=== PATIENT | female | born 1995 | race Caucasian/White ===

== ENCOUNTER 2021-05-17 12:10 | Emergency (ER) | payer OTHER, SELFPAY ==
[2021-05-17 12:22] VITALS: BP 117/57; PULSE 90; RESP 14; TEMP 37; O2SAT 99; BMI 33.6
[2021-05-17 12:52] LABS: COVID19 -Nasal RAPID Negative (Negative)
== END 2021-05-17 15:19 | disposition left against medical advice (07) ==
PROVIDERS: Emergency Provider Emergency Medicine
DX: Z53.21 Procedure and treatment not carried out due to patient leaving prior to being seen by health care provider (principal); Z20.822 Contact with and (suspected) exposure to COVID-19
CPT/HCPCS: 87635; 99281; C9803

== ENCOUNTER 2023-09-13 18:26 | Emergency (ER) | payer OTHER, SELFPAY ==
[2023-09-13 18:33] VITALS: BP 122/59; PULSE 80; RESP 16; TEMP 36.7; O2SAT 98; BMI 34.4
--- NOTE | 2023-09-13 18:38 | DI.RAD.S_ITS ---
PROCEDURE: XR KNEE LT 3V INDICATIONS: pain after fall TECHNIQUE: 3 views of the knee were acquired. COMPARISON: None. FINDINGS: Bones: No acute displaced fracture or dislocation. Soft tissues: No significant effusion. IMPRESSION: No acute radiographic abnormality. If there is high concern for occult injury, consider repeat radiography or cross-sectional imaging. Dictated by: Ramon Smiley M.D. on 09/13/2023 at 19:08 Approved by: Ramon Smiley M.D. on 09/13/2023 at 19:10
--- NOTE | 2023-09-13 19:28 | ED.LOWEXIN ---
HPI - Extremity Injury (Lower) General Chief Complaint: Extremity Injury, Lower Stated Complaint: lt knee injury, fall down 4 stairs Time Seen by Provider: 09/13/23 19:01 Source: patient Mode of arrival: Ambulatory History of Present Illness HPI Narrative: 27-year-old female presents for evaluation of left knee pain and swelling. Patient states that she slipped and fell down 4 stairs, twisting her knee. Patient states she heard a pop and had pain and swelling in her knee. Pain is worse when bearing weight. Has been taking Tylenol and ibuprofen and applying ice but it is still painful. She has an appointment with her PCP tomorrow morning, however a friend recommended she be evaluated in the ER. Related Data Allergies Allergy/AdvReac Type Severity Reaction Status Date / Time loratadine [From Claritin] Allergy Verified 05/17/21 12:26 Review of Systems Review of Systems Narrative: See HPI Patient History Social History Smoking Status: Never smoker Smoking Status: Never smoker alcohol intake frequency: holidays/special occasions only Substance Use Type: does not use Exam Initial Vital Signs Initial Vital Signs: Vital Signs Temperature 98.1 F 09/13/23 18:33 Pulse Rate 80 09/13/23 18:33 Respiratory Rate 16 09/13/23 18:33 Blood Pressure 122/59 L 09/13/23 18:33 Pulse Oximetry 98 09/13/23 18:33 Oxygen Delivery Method Room Air 09/13/23 18:33 Const: Awake, alert, no acute distress, nontoxic appearing MSK: Swelling of knee left greater than right, range of motion reduced due to pain, no obvious laxity Skin: Warm, Dry, intact, no rashes Neuro: AO x3, CN II-XII grossly intact, moves all extremities Course Orders Ordered: ED Orders 09/13/23 18:38 XR knee LT 3V Stat Vital Signs Vital signs: Vital Signs - 8 hr 09/13/23 18:33 Temperature 98.1 F Pulse Rate 80 Respiratory Rate 16 Blood Pressure 122/59 L Pulse Oximetry 98 Oxygen Delivery Method Room Air MDM - Extremity Injury (Lower) Imaging Data Extremity x-ray #1: Radiologist's Impression: PROCEDURE: XR KNEE LT 3V INDICATIONS: pain after fall TECHNIQUE: 3 views of the knee were acquired. COMPARISON: None. FINDINGS: Bones: No acute displaced fracture or dislocation. Soft tissues: No significant effusion. IMPRESSION: No acute radiographic abnormality. If there is high concern for occult injury, consider repeat radiography or cross-sectional imaging. Dictated by: Ramon Smiley M.D. on 09/13/2023 at 19:08 Approved by: Ramon Smiley M.D. on 09/13/2023 at 19:10 [facility] Narrative Medical decision making narrative: Knee pain and swelling after a fall and popping noise. X-ray imaging negative for acute findings. Possible ligamentous injury, however this would most likely need to be ascertained with an MRI. Patient placed in knee immobilizer and given crutches for support. She declined any additional pain medications. Orthopedic follow up advised, patient stated she would talk to her PCP tomorrow at her appointment about her potential options. Discharge Plan Departure Patient Disposition: Home Clinical Impression: Left knee sprain Qualifiers: Encounter type: initial encounter Instructions: DI for Knee Sprain Activity Restrictions/Additional Instructions: Your x-ray imaging today was normal. There was no fracture, however this does not rule out any injury to your ligaments. Follow up with the primary care physician and Orthopedic surgery if you continue to experience pain as you may need an MRI in the future. Referrals: Marzena Brewer ARNP [Primary Care Provider] - Stand Alone Forms: Patient Portal/API
[2023-09-13 19:59] VITALS: BP 128/71; PULSE 85; RESP 16; O2SAT 98
== END 2023-09-13 20:02 | disposition home or self-care (01) ==
PROVIDERS: Emergency Provider Emergency Medicine; PCP Nurse Practitioner
DX: S83.92XA Sprain of unspecified site of left knee, initial encounter (principal); W10.9XXA Fall (on) (from) unspecified stairs and steps, initial encounter
CPT/HCPCS: 73562; 99283